=== PATIENT | female | born 1945 | race Hispanic/Latino ===

== ENCOUNTER → 2020-01-16 | Outpatient (CLI) | payer MEDICARE, MEDICAID ==
[~2020-01-16] MED LIST: B COCAP4 PO; BIOT1CAP2 PO; CALC500C16 PO; D31000TA2 PO; MULTCAP PO; PANT40TA29
== END ==
LOC: M LABSMTC 10:13 → EDUNIT# 10:15
PROVIDERS: ATTEND Anesthesiology
DX: Z01.812 Encounter for preprocedural laboratory examination (principal); Z20.828 Contact with and (suspected) exposure to other viral communicable diseases
CPT/HCPCS: C9803; U0003

== ENCOUNTER 2020-01-21 09:26 | Day surgery (SDC) | payer MEDICARE, MEDICAID ==
[~2020-01-21] VITALS: Ht 157.5 cm; Wt 53.1 kg
[~2020-01-21 09:26] MED LIST changes: +CEFUROXIME 1MG/0.1ML INTRACAMERAL INJ As Ordered ONE; +DUOVISC (0.50ML VISCOAT/0.55ML PROVISC) OPHTH KIT As Ordered ONE; +OFLOXACIN 0.3 % (OCUFLOX) OPTH SOL 5ML OS ONE; +PHENYLEPHRINE 2.5% OPHTH SOL 2ML OS ONE; +POVIDONE-IODINE 5% OPHTH PREP SOL 30ML As Ordered ONE; +PROPARACAINE 0.5% OPHTH SOL 15ML OS ONE; +TROPICAMIDE 1% OPHTH SOLN 2ML OS ONE
[2020-01-21] MEDS ORDERED: BSS IRR 500ML/OMIDRIA 4ML IRR BAG (OR ONLY) (J1097 PER ML) As Ordered ONE (09:48)
[2020-01-21] MEDS ORDERED: fentaNYL 100 MCG/2 ML INJECTION (J3010) As Ordered ONE (10:46)
[2020-01-21] MEDS ORDERED: MIDAZOLAM INJ 2MG/2ML VIAL (J2250 PER 1MG) As Ordered ONE (10:46)
[2020-01-21 11:40] VITALS: BP 142/67
== END 2020-01-21 11:40 | disposition home or self-care (01) ==
LOC: M SDC 09:26
PROVIDERS: ATTEND Ophthalmology
DX: H25.12 Age-related nuclear cataract, left eye (principal); M13.80 Other specified arthritis, unspecified site
CPT/HCPCS: 66984; J1097; J2250; J3010; V2632

== ENCOUNTER → 2020-02-06 | Outpatient (CLI) | payer MEDICARE ==
[~2020-02-06] MED LIST changes: -CEFUROXIME 1MG/0.1ML INTRACAMERAL INJ As Ordered ONE; -DUOVISC (0.50ML VISCOAT/0.55ML PROVISC) OPHTH KIT As Ordered ONE; -OFLOXACIN 0.3 % (OCUFLOX) OPTH SOL 5ML OS ONE; -PHENYLEPHRINE 2.5% OPHTH SOL 2ML OS ONE; -POVIDONE-IODINE 5% OPHTH PREP SOL 30ML As Ordered ONE; -PROPARACAINE 0.5% OPHTH SOL 15ML OS ONE; -TROPICAMIDE 1% OPHTH SOLN 2ML OS ONE
== END ==
LOC: EDUNIT# 09:20 → M LABSMTC 09:25
PROVIDERS: ATTEND Anesthesiology
DX: Z01.812 Encounter for preprocedural laboratory examination (principal); Z20.828 Contact with and (suspected) exposure to other viral communicable diseases
CPT/HCPCS: C9803; U0003

== ENCOUNTER 2020-02-11 08:04 | Day surgery (SDC) | payer MEDICARE, MEDICAID ==
[~2020-02-11] VITALS: Ht 157.5 cm; Wt 53.4 kg
[~2020-02-11 08:04] MED LIST changes: +BSS IRR 500ML/OMIDRIA 4ML IRR BAG (OR ONLY) (J1097 PER ML) As Ordered ONE; +CEFUROXIME 1MG/0.1ML INTRACAMERAL INJ As Ordered ONE; +DUOVISC (0.50ML VISCOAT/0.55ML PROVISC) OPHTH KIT As Ordered ONE; +MIDAZOLAM INJ 2MG/2ML VIAL (J2250 PER 1MG) As Ordered ONE; +OFLOXACIN 0.3 % (OCUFLOX) OPTH SOL 5ML OD ONE; +PHENYLEPHRINE 2.5% OPHTH SOL 2ML OD ONE; +POVIDONE-IODINE 5% OPHTH PREP SOL 30ML As Ordered ONE; +PROPARACAINE 0.5% OPHTH SOL 15ML OD ONE; +TROPICAMIDE 1% OPHTH SOLN 2ML OD ONE; +fentaNYL 100 MCG/2 ML INJECTION (J3010) As Ordered ONE
[2020-02-11 10:55] VITALS: BP 132/67
== END 2020-02-11 10:55 | disposition home or self-care (01) ==
LOC: M SDC 08:04 → EDUNIT# 08:30 → M SDC 10:55
PROVIDERS: ATTEND Ophthalmology
DX: H25.11 Age-related nuclear cataract, right eye (principal)
CPT/HCPCS: 66984; J2250; J3010; V2632

== ENCOUNTER → 2020-03-16 | Outpatient (CLI) | payer MEDICARE, MEDICAID ==
[~2020-03-16] MED LIST changes: -BSS IRR 500ML/OMIDRIA 4ML IRR BAG (OR ONLY) (J1097 PER ML) As Ordered ONE; -CEFUROXIME 1MG/0.1ML INTRACAMERAL INJ As Ordered ONE; -DUOVISC (0.50ML VISCOAT/0.55ML PROVISC) OPHTH KIT As Ordered ONE; -MIDAZOLAM INJ 2MG/2ML VIAL (J2250 PER 1MG) As Ordered ONE; +MULTTAB61 PO; +NEXI40CA PO; -OFLOXACIN 0.3 % (OCUFLOX) OPTH SOL 5ML OD ONE; -PHENYLEPHRINE 2.5% OPHTH SOL 2ML OD ONE; -POVIDONE-IODINE 5% OPHTH PREP SOL 30ML As Ordered ONE; -PROPARACAINE 0.5% OPHTH SOL 15ML OD ONE; -TROPICAMIDE 1% OPHTH SOLN 2ML OD ONE; -fentaNYL 100 MCG/2 ML INJECTION (J3010) As Ordered ONE
== END ==
LOC: M LABSMTC 10:31
PROVIDERS: ATTEND Anesthesiology
DX: Z01.812 Encounter for preprocedural laboratory examination (principal); Z20.828 Contact with and (suspected) exposure to other viral communicable diseases

== ENCOUNTER 2020-03-21 10:23 | Day surgery (SDC) | payer MEDICARE, MEDICAID ==
[~2020-03-21] VITALS: Ht 157.5 cm; Wt 50.8 kg
[~2020-03-21 10:23] MED LIST changes: +NS 1,000 ML IV ONE
[2020-03-21] MEDS ORDERED: propofoL 200 MG/20 ML VIAL As Ordered ONE (11:34)
[2020-03-21] MEDS ORDERED: fentaNYL 100 MCG/2 ML INJECTION (J3010) As Ordered ONE (11:34)
[2020-03-21] MEDS ORDERED: LIDOCAINE 2% 100MG/5ML SDV (FOR ANES.) As Ordered ONE (11:34)
[2020-03-21 12:30] VITALS: BP 124/67
--- NOTE | 2020-03-21 12:45 | ROOR ---
Patient Name: Elda Marquez Procedure Date: 03/21/2020 11:32 AM Date of : 1945 Age: 74 Room: [facility] Gender: Female Note Status: Finalized Procedure: Upper GI endoscopy Indications: Epigastric abdominal pain, Heartburn Providers: Herb Carlos MD Referring MD: Ely Pleitez Requesting Provider: Medicines: Monitored Anesthesia Care Complications: No immediate complications. Procedure: Pre-Anesthesia Assessment: - Prior to the procedure, a History and Physical was performed, and patient medications and allergies were reviewed. The patient is competent. The risks and benefits of the procedure and the sedation options and risks were discussed with the patient. All questions were answered and informed consent was obtained. Patient identification and proposed procedure were verified by the physician, the nurse and the anesthesiologist in the procedure room. Mental Status Examination: alert and oriented. Airway Examination: normal oropharyngeal airway and neck mobility. Respiratory Examination: clear to auscultation. CV Examination: normal. Prophylactic Antibiotics: The patient does not require prophylactic antibiotics. Prior Anticoagulants: The patient has taken no previous anticoagulant or antiplatelet agents. ASA Grade Assessment: II - A patient with mild systemic disease. After reviewing the risks and benefits, the patient was deemed in satisfactory condition to undergo the procedure. The anesthesia plan was to use monitored anesthesia care (MAC). Immediately prior to administration of medications, the patient was re-assessed for adequacy to receive sedatives. The heart rate, respiratory rate, oxygen saturations, blood pressure, adequacy of pulmonary ventilation, and response to care were monitored throughout the procedure. The physical status of the patient was re-assessed after the procedure. The Endoscope was introduced through the mouth, and advanced to the second part of duodenum. The upper GI endoscopy was accomplished without difficulty. The patient tolerated the procedure well. Findings: Patchy, white plaques were found in the upper third of the esophagus. Cells for cytology were obtained by brushing. Verification of patient identification for the specimen was done by the physician and nurse using the patient's name, date and medical record number. Estimated blood loss was minimal. Patchy mild inflammation characterized by erythema and granularity was found in the gastric antrum. Biopsies were taken with a cold forceps for Helicobacter pylori testing. The duodenal bulb and second portion of the duodenum were normal. Impression: - Esophageal plaques were found, suspicious for candidiasis. Cells for cytology obtained. - Gastritis. Biopsied. - Normal duodenal bulb and second portion of the duodenum. Recommendation: - Patient has a contact number available for emergencies. The signs and symptoms of potential delayed complications were discussed with the patient. Return to normal activities tomorrow. Written discharge instructions were provided to the patient. - High fiber diet. - Continue present medications. - Await pathology results. - Telephone GI clinic for pathology results in 2 weeks. - Return to primary care physician. Procedure Code(s): --- Professional --- 94274, Esophagogastroduodenoscopy, flexible, transoral; with biopsy, single or multiple Diagnosis Code(s): --- Professional --- K22.9, Disease of esophagus, unspecified K29.70, Gastritis, unspecified, without bleeding R10.13, Epigastric pain R12, Heartburn CPT copyright 2019 [employer]. All rights reserved. The codes documented in this report are preliminary and upon solar systems designer review may be revised to meet current compliance requirements. Herb Carlos MD Herb Carlos MD 03/21/2020 12:45:49 PM Electronically signed by Herb Carlos MD Number of Addenda: 0 Note Initiated On: 03/21/2020 11:32 AM Estimated Blood Loss: Estimated blood loss was minimal.
--- NOTE | 2020-03-21 12:50 | ROOR ---
Patient Name: Elda Marquez Procedure Date: 03/21/2020 11:33 AM Date of : 1945 Age: 74 Room: [facility] Gender: Female Note Status: Finalized Procedure: Colonoscopy Indications: High risk colon cancer surveillance: Personal history of colonic polyps Providers: Herb Carlos MD Referring MD: Ely Pleitez Requesting Provider: Medicines: Monitored Anesthesia Care Complications: No immediate complications. Procedure: Pre-Anesthesia Assessment: - Prior to the procedure, a History and Physical was performed, and patient medications and allergies were reviewed. The patient is competent. The risks and benefits of the procedure and the sedation options and risks were discussed with the patient. All questions were answered and informed consent was obtained. Patient identification and proposed procedure were verified by the physician, the nurse and the anesthesiologist in the procedure room. Mental Status Examination: alert and oriented. Airway Examination: normal oropharyngeal airway and neck mobility. Respiratory Examination: clear to auscultation. CV Examination: normal. Prophylactic Antibiotics: The patient does not require prophylactic antibiotics. Prior Anticoagulants: The patient has taken no previous anticoagulant or antiplatelet agents. ASA Grade Assessment: II - A patient with mild systemic disease. After reviewing the risks and benefits, the patient was deemed in satisfactory condition to undergo the procedure. The anesthesia plan was to use monitored anesthesia care (MAC). Immediately prior to administration of medications, the patient was re-assessed for adequacy to receive sedatives. The heart rate, respiratory rate, oxygen saturations, blood pressure, adequacy of pulmonary ventilation, and response to care were monitored throughout the procedure. The physical status of the patient was re-assessed after the procedure. The Colonoscope was introduced through the anus and advanced to the terminal ileum, with identification of the appendiceal orifice and IC valve. The colonoscopy was performed without difficulty. The patient tolerated the procedure well. The quality of the bowel preparation was adequate to identify polyps 6 mm and larger in size and fair. The terminal ileum, ileocecal valve, appendiceal orifice, and rectum were photographed. Scope insertion time was 3 minutes. Scope withdrawal time was 10 minutes. The total duration of the procedure was 14 minutes. Findings: The perianal and digital rectal examinations were normal. The terminal ileum appeared normal. A 3 mm polyp was found in the cecum. The polyp was sessile. The polyp was removed with a cold biopsy forceps. Resection and retrieval were complete. Verification of patient identification for the specimen was done by the physician and nurse using the patient's name, date and medical record number. Estimated blood loss was minimal. Non-bleeding external and internal hemorrhoids were found during retroflexion. The hemorrhoids were medium-sized. The exam was otherwise without abnormality on direct and retroflexion views. Impression: - Preparation of the colon was fair. - The examined portion of the ileum was normal. - One 3 mm polyp in the cecum, removed with a cold biopsy forceps. Resected and retrieved. - Non-bleeding external and internal hemorrhoids. - The examination was otherwise normal on direct and retroflexion views. Recommendation: - Patient has a contact number available for emergencies. The signs and symptoms of potential delayed complications were discussed with the patient. Return to normal activities tomorrow. Written discharge instructions were provided to the patient. - High fiber diet. - Continue present medications. - Use fiber, for example Citrucel, Fibercon, Konsyl or Metamucil. - Await pathology results. - Repeat colonoscopy in 5 years for surveillance based on pathology results and depending on clinical and functional status. - Return to primary care physician. Procedure Code(s): --- Professional --- 37411, Colonoscopy, flexible; with biopsy, single or multiple Diagnosis Code(s): --- Professional --- Z86.010, Personal history of colonic polyps K64.8, Other hemorrhoids K63.5, Polyp of colon CPT copyright 2019 [employer]. All rights reserved. The codes documented in this report are preliminary and upon leather patcher review may be revised to meet current compliance requirements. Herb Carlos MD Herb Carlos MD 03/21/2020 12:49:49 PM Electronically signed by Herb Carlos MD Number of Addenda: 0 Note Initiated On: 03/21/2020 11:33 AM Estimated Blood Loss: Estimated blood loss was minimal.
== END 2020-03-21 13:06 | disposition home or self-care (01) ==
LOC: M OPP 10:23
PROVIDERS: ATTEND Internal Medicine Gastroenterology
DX: Z12.11 Encounter for screening for malignant neoplasm of colon (principal); Z86.010 Personal history of colon polyps; K64.8 Other hemorrhoids; D12.0 Benign neoplasm of cecum; K22.9 Disease of esophagus, unspecified; K29.70 Gastritis, unspecified, without bleeding; R10.13 Epigastric pain; Z79.899 Other long term (current) drug therapy
CPT/HCPCS: 43239; 45380; 88104; 88305; J3010

== ENCOUNTER → 2020-08-02 | Outpatient (CLI) | payer MEDICARE, MEDICAID ==
[~2020-08-02] MED LIST changes: -NS 1,000 ML IV ONE
--- NOTE | 2020-08-02 16:40 | REP ---
INDICATION: DYSPHAGIA, UNSPECIFIED. COMPARISON: NONE TECHNIQUE: The procedure was performed under the direct supervision of . The procedure was performed with Mary Ann Bae from speech pathology present. 5 CC aliquots of thin, pudding, mixed fruit, soft and solid consistency barium was administered. 1.3 minutes of fluoroscopy time was utilized for this procedure. FINDINGS: With thin consistency barium, through the straw, there is laryngeal penetration. A detailed report of this examination will be provided by speech pathology. IMPRESSION: With thin consistency barium, through the straw, there is laryngeal penetration. A detailed report of this examination will be provided by speech pathology. <Electronically signed by Donavon Day > 08/02/20 2212 <Electronically signed by Perfecto Cheng > 08/02/20 2299
== END ==
LOC: M ST 08:00
PROVIDERS: ATTEND Physician Assistant Medical
DX: R13.10 Dysphagia, unspecified (principal)

== ENCOUNTER → 2022-03-08 | Outpatient (CLI) | payer MEDICARE, MEDICAID ==
[~2022-03-08] MED LIST changes: +BIOT50004 PO; +CALC250T PO; -D31000TA2 PO; +EQL50TAB2 PO; +FAMO40TA3 PO; +IBUP200C28 PO; +VITA100093 PO
== END ==
LOC: M LABSMTC 10:26
PROVIDERS: ATTEND Anesthesiology
DX: Z01.812 Encounter for preprocedural laboratory examination (principal); Z11.52 Encounter for screening for COVID-19

== ENCOUNTER 2022-03-13 11:35 | Day surgery (SDC) | payer MEDICARE, MEDICAID ==
[~2022-03-13] VITALS: Ht 157.5 cm; Wt 50.3 kg
[~2022-03-13 11:35] MED LIST changes: +NS 1,000 ML IV ONE
[2022-03-13] MEDS ORDERED: propofoL 200 MG/20 ML VIAL As Ordered ONE (13:31)
[2022-03-13] MEDS ORDERED: fentaNYL 100 MCG/2 ML INJECTION As Ordered ONE (13:31)
[2022-03-13] MEDS ORDERED: LIDOCAINE 2% 100MG/5ML SDV (FOR ANES.) As Ordered ONE (13:31)
[2022-03-13 14:35] VITALS: BP 175/74
== END 2022-03-13 14:38 | disposition home or self-care (01) ==
LOC: M OPP 11:35
PROVIDERS: ATTEND Internal Medicine Gastroenterology
DX: K22.9 Disease of esophagus, unspecified (principal); K31.A14 Gastric intestinal metaplasia without dysplasia, involving the cardia; R13.10 Dysphagia, unspecified; Z79.1 Long term (current) use of non-steroidal anti-inflammatories (NSAID); Z79.899 Other long term (current) drug therapy; M19.90 Unspecified osteoarthritis, unspecified site; R35.0 Frequency of micturition
CPT/HCPCS: 43239; 88104; 88305; 91035; J3010

== ENCOUNTER → 2022-06-20 | Outpatient (CLI) | payer MEDICARE, MEDICAID ==
[~2022-06-20] MED LIST changes: -NS 1,000 ML IV ONE
== END ==
LOC: M SOG 08:13
PROVIDERS: ATTEND Orthopaedic Surgery
DX: M25.561 Pain in right knee (principal)

== ENCOUNTER → 2024-05-19 | Outpatient (CLI) | payer MEDICARE, MEDICAID ==
[~2024-05-19] MED LIST changes: -BIOT50004 PO; +BIOT5CAP8 PO; +LIDOCAINE 1% MDV 20ML VIAL As Ordered ONE
[2024-05-19 07:55] VITALS: TEMP 97
[2024-05-19 08:35] VITALS: BP 187/88; O2SAT 100
== END ==
LOC: M IRPRO 07:48
PROVIDERS: ATTEND Otolaryngology
DX: E04.1 Nontoxic single thyroid nodule (principal)